=== PATIENT | female | born 1985 | race Two or more races ===

== ENCOUNTER 2017-02-19 20:50 | Emergency (ER) | payer BC ==
[~2017-02-19 20:50] MED LIST: FLAGYL500 MG PO; MACROBID 100 M100 MG; MACROBID 100 M100 MG PO; PRENATAL1 EACH PO; PRENATAL1 TAB; [UNRECOGNIZED DRUG - OTHER]
[2017-02-20] MEDS ORDERED: NORCO 5-325 TA1 EACH PO (17:40)
== END 2017-02-19 22:03 ==
LOC: EDMED 20:50
DX: S93.402A Sprain of unspecified ligament of left ankle, initial encounter (principal); F17.200 Nicotine dependence, unspecified, uncomplicated; V18.4XXA Pedal cycle driver injured in noncollision transport accident in traffic accident, initial encounter; Y93.55 Activity, bike riding; Y92.410 Unspecified street and highway as the place of occurrence of the external cause; Y99.8 Other external cause status

== ENCOUNTER 2017-02-20 17:09 | Emergency (ER) | payer BC ==
[2017-02-20] MEDS ORDERED: NORCO 5-325 TA1 EACH PO (17:40)
== END 2017-02-20 17:47 ==
LOC: EDMED 17:09
PROC: 2W3MX1Z Immobilization of Left Lower Extremity using Splint (ICD-10-PCS; principal; 2017-02-20)
DX: S82.892A Other fracture of left lower leg, initial encounter for closed fracture (principal); F17.210 Nicotine dependence, cigarettes, uncomplicated; V87.8XXA Person injured in other specified noncollision transport accidents involving motor vehicle (traffic), initial encounter; Y92.410 Unspecified street and highway as the place of occurrence of the external cause